=== PATIENT | female | born 1985 | race Caucasian/White ===

== ENCOUNTER 2017-01-01 20:49 | Emergency (ER) | payer SELFPAY ==
[2017-01-01] MEDS ORDERED: PROMETHAZINE HCL 25 MG TABLET PO ONE (21:35)
[2017-01-01] MEDS ORDERED: LIDOCAINE 1%/EPINEPHRINE INJ 20 ML VIAL INJ ONE (21:35)
[2017-01-01] MEDS ORDERED: OXYCODONE-ACETAMINOPHEN 5-325 MG TABLET PO ONE (21:35)
--- NOTE | 2017-01-01 21:36 | ER Document Report ---
ED Skin Rash/Insect Bite/Abscs - General Chief Complaint: Cyst Stated Complaint: POSSIBLE CYST UNDER ARMPIT Time Seen by Provider: 01/01/17 21:35 Notes: Patient is a 31-year-old female who comes emergency department for chief complaint of a painful elevated red area in her left armpit, she states this began almost 2 weeks ago, last week she was evaluated by urgent care and placed on Keflex, she states the area has worsened, she states she called them and they advised her to come to the emergency department. Patient denies any daily medications, denies any past medical history otherwise. TRAVEL OUTSIDE OF THE [place] IN LAST 30 DAYS: No - Related Data Allergies/Adverse Reactions: No Known Allergies Allergy (Verified 10/02/14 13:50) Past Medical History - General Information source: Patient - Social History Smoking Status: Current Every Day Smoker Chew tobacco use (# tins/day): No Frequency of alcohol use: None Drug Abuse: None Lives with: Family Family History: Reviewed & Not Pertinent Patient has suicidal ideation: No Patient has homicidal ideation: No Renal/ Medical History: Denies: Hx Peritoneal Dialysis Past Surgical History: Reports: Hx Section, Hx Cholecystectomy, Hx Gynecologic Surgery - - Immunizations Hx Diphtheria, Pertussis, Tetanus Vaccination: Yes Review of Systems - Review of Systems Constitutional: No symptoms reported EENT: No symptoms reported Cardiovascular: No symptoms reported Respiratory: No symptoms reported Gastrointestinal: No symptoms reported Genitourinary: No symptoms reported Female Genitourinary: No symptoms reported Musculoskeletal: No symptoms reported Skin: See HPI Hematologic/Lymphatic: No symptoms reported Neurological/Psychological: No symptoms reported Physical Exam - Vital signs Vitals: Temp Pulse Resp BP Pulse Ox 98.0 F 57 L 17 126/84 H 100 01/01/17 21:07 01/01/17 21:07 01/01/17 21:07 01/01/17 21:07 01/01/17 21:07 Interpretation: Normal - General General appearance: Appears well, Alert In distress: None - HEENT Head: Normocephalic, Atraumatic Eyes: Normal Conjunctiva: Normal Extraocular movements intact: Yes Eyelashes: Normal Pupils: PERRL Sinus: Normal Nasal: Normal Mouth/Lips: Normal Mucous membranes: Normal Pharynx: Normal Neck: Normal - Respiratory Respiratory status: No respiratory distress Chest status: Nontender Breath sounds: Normal. No: Decreased air movement, Wheezing Chest palpation: Normal - Cardiovascular Rhythm: Regular. No: Tachycardia Heart sounds: Normal auscultation, S1 appreciated, S2 appreciated Murmur: No - Abdominal Inspection: Normal Distension: No distension Bowel sounds: Normal Tenderness: Nontender Organomegaly: No organomegaly - Back Back: Normal, Nontender - Extremities General upper extremity: Normal inspection, Nontender, Normal color, Normal ROM , Normal temperature General lower extremity: Normal inspection, Nontender, Normal color, Normal ROM , Normal temperature, Normal weight bearing. No: Leland's sign - Neurological Neuro grossly intact: Yes Cognition: Normal Orientation: AAOx4 Keny Coma Scale Eye Opening: Spontaneous Keny Coma Scale Verbal: Oriented Keny Coma Scale Motor: Obeys Commands Keny Coma Scale Total: 15 Speech: Normal Motor strength normal: LUE, RUE, LLE, RLE Sensory: Normal - Psychological Associated symptoms: Normal affect, Normal mood - Skin Skin Temperature: Warm Skin Moisture: Dry Skin Color: Normal Skin irregularity: Abscess - Left mid axillary area with a elevated, fluctuant, indurated, tender abscess with minimal surrounding erythema, no surrounding lymphadenopathy, no other abnormalities noted Course - Re-evaluation Re-evalutation: Abscess drained, packed, patient placed on oral antibiotic to take along with her Keflex, discussed follow-up, discussed return precautions, patient states she is planning on taking the packing out in 2 days at home by herself, she agrees to return for any concerning or worsening symptoms. - Vital Signs Vital signs: Temp Pulse Resp BP Pulse Ox 98.1 F 57 L 18 128/76 H 99 01/01/17 22:40 01/01/17 21:07 01/01/17 22:40 01/01/17 22:40 01/01/17 22:40 Procedures - Incision and Drainage Left axilla Type: Single Anesthetic type: 1% Lidocaine w/epi mL's of anesthetic: 5 Blade size: 11 I&D procedure: Iodoform packing placed, Sterile dressing applied Incision Method: Incision made by scalpel Amount/type of drainage: Large amount of purulent material, minimal bleeding Discharge - Discharge Clinical Impression: Abscess Condition: Stable Disposition: HOME, SELF-CARE Additional Instructions: Take the packing out in 48 hours, keep an absorbing gauze dressing over the area (change at least daily), clean gently with soap and water. After packing is removed clean with soap and water and to keep dressing over the area until resolved. Take the antibiotic as directed, take the pain medication if needed. Follow-up with primary care. Return to emergency department for any concerning or worsening symptoms including swelling, redness, fever, or any other concerning symptoms. Prescriptions: Hydrocodone/Acetaminophen [Colebrook 5-325 mg Tablet] 1 - 2 tab PO ASDIR #10 tablet Sulfamethoxazole/Trimethoprim [Bactrim Ds Tablet] 1 each PO BID #10 tablet Forms: Return to Work Referrals: CHRISTIAN PEREYRA MD [Primary Care Provider] - Follow up as needed
[2017-01-01] MEDS ORDERED: HYDROCODONE/ACETAMINOPHEN 5-325 MG 6 TAB/DSPK PO PRN (22:17)
[2017-01-01 22:41] VITALS: BP 128/76
== END 2017-01-01 22:43 | disposition home or self-care (01) ==
LOC: ER 20:49
PROC: 0H9CXZZ Drainage of Left Upper Arm Skin, External Approach (ICD-10-PCS; principal; 2017-01-01)
DX: L02.414 Cutaneous abscess of left upper limb (principal); F17.200 Nicotine dependence, unspecified, uncomplicated
CPT/HCPCS: 99283; 10060; J3490; A6266

== ENCOUNTER 2017-01-24 12:18 | Emergency (ER) | payer SELFPAY ==
[2017-01-24] MEDS ORDERED: ACETAMINOPHEN WITH CODEINE #3 TABLET PO ONE (12:28)
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
[2017-01-24 13:26] VITALS: BP 132/89
== END 2017-01-24 13:26 | disposition home or self-care (01) ==
LOC: ER 12:18
DX: S01.01XA Laceration without foreign body of scalp, initial encounter (principal); R51 Headache; Y00.XXXA Assault by blunt object, initial encounter; F41.9 Anxiety disorder, unspecified
CPT/HCPCS: 99284

== ENCOUNTER 2017-08-26 16:36 | Inpatient (IN) | payer SELFPAY ==
--- NOTE | 2017-08-26 16:46 | ER Document Report ---
ED General - General Stated Complaint: POSSIBLE OVERDOSE Time Seen by Provider: 08/26/17 16:46 Notes: 32-year-old female patient brought in by EMS for overdose. States that she was depressed. Admits to smoking marijuana. Took 20 tablets of 2 mg rexulti tablets which is a second generation atypical antipsychotic. Denies taking any heroin or narcotics. Denies alcohol. Has a history of depression red blood sugar by EMS was reportedly normal. Patient began to have episodes of bradycardia with heart rates in the 30s. Heart pressure normal. Patient obtunded. TRAVEL OUTSIDE OF THE [place] IN LAST 30 DAYS: No - HPI Onset: Just prior to arrival - Related Data Allergies/Adverse Reactions: No Known Allergies Allergy (Verified 10/02/14 13:50) Past Medical History - General Information source: Patient - Social History Smoking Status: Smoker,Current Status Unk Smoking Education Provided: No Frequency of alcohol use: None Drug Abuse: Marijuana Lives with: Family Family History: Reviewed & Not Pertinent - Past Medical History Cardiac Medical History: Reports: None Pulmonary Medical History: Reports: None EENT Medical History: Reports: None Neurological Medical History: Reports: None Endocrine Medical History: Reports: None Renal/ Medical History: Reports: None. Denies: Hx Peritoneal Dialysis Malignancy Medical History: Reports: None GI Medical History: Reports: None Musculoskeltal Medical History: Reports None Skin Medical History: Reports None Psychiatric Medical History: Reports: Hx Bipolar Disorder, Hx Depression Past Surgical History: Reports: Hx Section, Hx Cholecystectomy, Hx Gynecologic Surgery - - Immunizations Hx Diphtheria, Pertussis, Tetanus Vaccination: Yes Physical Exam - Vital signs Vitals: Resp Pulse Ox 17 99 08/26/17 16:48 08/26/17 16:48 Course - Vital Signs Vital signs: Temp Pulse Resp BP Pulse Ox 22 H 120/71 99 08/26/17 18:47 08/26/17 19:17 08/26/17 19:17 - Laboratory Result Diagrams: 08/26/17 16:50 08/26/17 16:50 Laboratory results interpreted by me: 08/26/17 08/26/17 16:50 18:38 ABG pO2 103.0 H ABG Total CO2 25.6 H Chloride 109 H BUN 6 L Glucose 165 H Acetaminophen < 10 L - EKG Interpretation by Ca EKG shows normal: [place], Intervals, QRS Complexes, ST-T Waves Rate: Bradycardia Additional EKG results interpreted by me: 08/26/17 19:14 Rate is 40 with sinus bradycardia. Normal QRS and normal QTC Critical Care Note - Critical Care Note Total time excluding time spent on procedures (mins): 75 Comments: Bradycardia, overdose, consultation with specialists Discharge - Discharge Clinical Impression: Intentional overdose of drug in tablet form, Symptomatic sinus bradycardia Condition: Serious Disposition: ADMITTED INPATIENT Admitting Provider: Hospitalist Unit Admitted: ICU - Ge[facility]
[2017-08-26] MEDS ORDERED: NALOXONE HCL INJ/PF 0.4 MG/1 ML SDV ONE (16:52)
[2017-08-26] MEDS ORDERED: NORMAL SALINE 1000 ML 1,000 ML IV ONE (16:56)
[2017-08-26 17:04] LABS: ABSOLUTE EOSINOPHILS # (AUTO) 0.3 10^3/uL (0.0-0.6); ABSOLUTE LYMPHOCYTES (AUTO) 2.2 10^3/uL (0.5-4.7); ABSOLUTE MONOCYTES (AUTO) 0.6 10^3/uL (0.1-1.4); ABSOLUTE NEUT (AUTO) 3.7 10^3/uL (1.7-8.2); BASOPHILS % (AUTO) 0.6 % (0-2); EOSINOPHILS % (AUTO) 4.6 % (0-6); HEMATOCRIT 40.6 % (36.0-47.0); HEMOGLOBIN 13.8 g/dL (12.0-15.5); LYMPHOCYTES % (AUTO) 31.8 % (13-45); MEAN CORPUSCULAR HGB CONC 33.9 g/dL (32.0-36.0); MEAN CORPUSCULAR VOLUME 92 fl (80-97); MONOCYTES % (AUTO) 8.5 % (3-13); PLATELET COUNT 332 10^3/uL (150-450); RED BLOOD COUNT 4.43 10^6/uL (3.72-5.28); RED CELL DISTRIBUTION WIDTH 13.6 % (11.5-14.0); SEGMENTED NEUTROPHILS % (AUTO) 54.5 % (42-78); TOTAL CELLS COUNTED % (AUTO) 100 %; WHITE BLOOD COUNT 6.8 10^3/uL (4.0-10.5)
[2017-08-26 17:34] LABS: ALANINE AMINOTRANSFERASE 26 U/L (9-52); ALBUMIN 4.3 g/dL (3.5-5.0); ALKALINE PHOSPHATASE 54 U/L (38-126); ANION GAP 7 (5-19); ASPARTATE AMINO TRANSFERASE 32 U/L (14-36); BILIRUBIN,DIRECT 0.4 mg/dL (0.0-0.4); BILIRUBIN,TOTAL 0.9 mg/dL (0.2-1.3); BLOOD UREA NITROGEN 6 mg/dL (7-20); CALCIUM 9.9 mg/dL (8.4-10.2); CARBON DIOXIDE 26 mmol/L (22-30); CHLORIDE 109 mmol/L (98-107); CREATINE KINASE 45 U/L (30-135); GLUCOSE 165 mg/dL (75-110); POTASSIUM 3.8 mmol/L (3.6-5.0); SODIUM 142.3 mmol/L (137-145); TOTAL PROTEIN 7.3 g/dL (6.3-8.2)
[2017-08-26 17:45] LABS: CREATINE KINASE MB < 0.22 ng/mL (<4.55); TROPONIN I < 0.012 ng/mL
[2017-08-26 17:52] LABS: ACETAMINOPHEN < 10 ug/mL (10-30); ALCOHOL < 10 mg/dL (NONE DETECTED)
[2017-08-26] MEDS ORDERED: NALOXONE HCL INJ/PF 0.4 MG/1 ML SDV IV ONE (18:19)
[2017-08-26 18:32] LABS: APPEARANCE,URINE SLIGHTLY-CLOUDY; BILIRUBIN,URINE NEGATIVE (NEGATIVE); COLOR,URINE STRAW; GLUCOSE, URINE NEGATIVE (NEGATIVE); KETONES,URINE NEGATIVE (NEGATIVE); LEUKOCYTE ESTERASE,URINE NEGATIVE (NEGATIVE); NITRITE,URINE NEGATIVE (NEGATIVE); PROTEIN,URINE NEGATIVE (NEGATIVE); URINE SPECIFIC GRAVITY 1.003; UROBILINOGEN,URINE NEGATIVE mg/dL (<2.0)
[2017-08-26 18:52] LABS: URINE AMPHETAMINES SCREEN NEGATIVE; URINE BARBITURATES SCREEN NEGATIVE; URINE BENZODIAZEPINES SCREEN NEGATIVE; URINE COCAINE SCREEN NEGATIVE; URINE MARIJUANA (THC) SCREEN UNCONFIRMED POSITIVE; URINE METHADONE SCREEN NEGATIVE; URINE PHENCYCLIDINE SCREEN NEGATIVE
[2017-08-26 19:22] LABS: ARTERIAL BLOOD BASE EXCESS 0.4 mmol/L; ARTERIAL BLOOD H2CO3 1.14 mmol/L (1.05-1.35); ARTERIAL BLOOD HCO3 24.5 mmol/L (20-26); ARTERIAL BLOOD O2 SATURATION 97.9 % (94-98); ARTERIAL BLOOD PCO2 37.8 mmHg (35-45); ARTERIAL BLOOD PH 7.43 (7.35-7.45); ARTERIAL BLOOD TOTAL CO2 25.6 mmol/L (21-25)
[2017-08-26 19:24] LABS: ARTERIAL BLOOD FIO2 ROOM AIR
[2017-08-26] MEDS ORDERED: IPRATROPIUM/ALBUTEROL 0.5-2.5 MG/3 ML AMPUL NEB ONE (21:04)
[2017-08-26] MEDS ORDERED: IPRATROPIUM/ALBUTEROL 0.5-2.5 MG/3 ML AMPUL NEB PRN (21:04)
[2017-08-26] MEDS ORDERED: ACETAMINOPHEN 325 MG TABLET PO PRN (21:04)
[2017-08-26] MEDS ORDERED: MAGNESIUM HYDROXIDE SUSP 30 ML UDCUP PO PRN (22:00)
[2017-08-26 22:52] LABS: CREATINE KINASE MB < 0.22 ng/mL (<4.55); TROPONIN I < 0.012 ng/mL
[2017-08-26] MEDS: HEPARIN SOD (PORCINE) 5,000 UNIT/ML 1 ML SYRINGE SUBCUT SCH (23:56)
[2017-08-27] MEDS ORDERED: NORMAL SALINE 1000 ML 1,000 ML IV PRN (02:58)
--- NOTE | 2017-08-27 03:46 | PDOC H&P ---
History of Present Illness Admission Date/PCP: 08/26/17 19:39 Patient complains of: Overdose History of Present Illness: SUKHDEV COBB is a 32 year old female with a past medical history of morbid obesity, bipolar disorder not on medication. Patient presents lethargic via EMS after admitting a depression motivated overdose of 20 tablets of 2 mg Rexulti and atypical antipsychotic of her daughters. Patient is found to have bradycardia in the mid 30s bedside pacer pads are placed, toxicology recommends telemetry observation. Mental health is consulted IVC papers are signed and she is referred to the hospitalist for admission. Patient has no complaints, denies previous episode, admits to marijuana otherwise unremarkable lab results. Past Medical History Cardiac Medical History: Reports: None Pulmonary Medical History: Reports: None EENT Medical History: Reports: None Neurological Medical History: Reports: None Endocrine Medical History: Reports: None Renal/ Medical History: Reports: None Malignancy Medical History: Reports: None GI Medical History: Reports: None Musculoskeltal Medical History: Reports: None Skin Medical History: Reports: None Psychiatric Medical History: Reports: Bipolar Disorder, Depression Past Surgical History Past Surgical History: Reports: Section, Cholecystectomy Social History Information Source: Patient Lives with: Family Smoking Status: Smoker,Current Status Unk Drugs: Marijuana - Advance Directive Resuscitation Status: Full Code Family History Family History: Hypertension Parental Family History Reviewed: Yes Children Family History Reviewed: Yes Sibling(s) Family History Reviewed.: Yes Medication/Allergy Home Medications: No Home Medications 08/26/17 Allergies/Adverse Reactions: No Known Allergies Allergy (Verified 10/02/14 13:50) Review of Systems ROS unobtainable: Due to mental status Physical Exam Vital Signs: Temp Pulse Resp BP Pulse Ox 35 L 16 113/59 L 98 08/26/17 20:32 08/27/17 00:31 08/27/17 00:31 08/27/17 00:31 Intake & Output 08/25/17 08/26/17 08/27/17 11:59 11:59 11:59 Output Total 400 Balance -400 General appearance: PRESENT: morbidly obese, other - Lethargic but arousable to noxious stimuli Head exam: PRESENT: atraumatic - ., normocephalic Eye exam: PRESENT: conjunctiva pink, EOMI, PERRLA. ABSENT: scleral icterus Ear exam: PRESENT: normal external ear exam Mouth exam: PRESENT: moist, tongue midline Neck exam: ABSENT: carotid bruit, JVD, lymphadenopathy, thyromegaly Respiratory exam: PRESENT: clear to auscultation carmelo. ABSENT: rales, rhonchi, wheezes Cardiovascular exam: PRESENT: RRR. ABSENT: diastolic murmur, rubs, systolic murmur Pulses: PRESENT: normal dorsalis pedis pul Vascular exam: PRESENT: normal capillary refill GI/Abdominal exam: PRESENT: normal bowel sounds, soft. ABSENT: distended, guarding, mass, organolmegaly, rebound, tenderness Rectal exam: PRESENT: deferred Extremities exam: PRESENT: full ROM. ABSENT: calf tenderness, clubbing, pedal edema Neurological exam: PRESENT: alert, awake, oriented to person, oriented to place , oriented to time, oriented to situation, CN II-XII grossly intact. ABSENT: motor sensory deficit Psychiatric exam: PRESENT: depressed, flat affect Skin exam: PRESENT: dry, intact, warm. ABSENT: cyanosis, rash Results Laboratory Results: 08/26/17 08/26/17 21:55 21:55 Creatine Kinase 35 CK-MB (CK-2) < 0.22 Troponin I < 0.012 Assessment & Plan - Diagnosis (1) Symptomatic sinus bradycardia Is this a current diagnosis for this admission?: Yes Plan: ICU admission, pacer pads placed as needed atropine, trial beta-2 agonist nebulizer. (2) Intentional overdose of drug in tablet form Is this a current diagnosis for this admission?: Yes Plan: IVC papers signed, mental health consulted. Supportive care (3) Depression Is this a current diagnosis for this admission?: Yes Plan: Evaluate for medical cause given significant morbid obesity with eval of TSH (4) Morbid obesity Is this a current diagnosis for this admission?: Yes Plan: Morbid obesity will evaluate for metabolic cause with evaluation of thyroid function and dietitian consultation. - Time Time Spent: 50 to 70 Minutes - Inpatient Certification Medical Necessity: Need Close Monitoring Due to Risk of Patient Decompensation
[2017-08-27 04:20] LABS: ABSOLUTE EOSINOPHILS # (AUTO) 0.4 10^3/uL (0.0-0.6); ABSOLUTE LYMPHOCYTES (AUTO) 3.6 10^3/uL (0.5-4.7); ABSOLUTE MONOCYTES (AUTO) 0.9 10^3/uL (0.1-1.4); ABSOLUTE NEUT (AUTO) 4.4 10^3/uL (1.7-8.2); BASOPHILS % (AUTO) 0.4 % (0-2); EOSINOPHILS % (AUTO) 3.8 % (0-6); HEMATOCRIT 38.2 % (36.0-47.0); HEMOGLOBIN 12.9 g/dL (12.0-15.5); LYMPHOCYTES % (AUTO) 38.6 % (13-45); MEAN CORPUSCULAR HEMOGLOBIN 30.9 pg (27.0-33.4); MEAN CORPUSCULAR HGB CONC 33.7 g/dL (32.0-36.0); MEAN CORPUSCULAR VOLUME 92 fl (80-97); MONOCYTES % (AUTO) 9.7 % (3-13); PLATELET COUNT 298 10^3/uL (150-450); RED BLOOD COUNT 4.17 10^6/uL (3.72-5.28); RED CELL DISTRIBUTION WIDTH 13.6 % (11.5-14.0); SEGMENTED NEUTROPHILS % (AUTO) 47.5 % (42-78); TOTAL CELLS COUNTED % (AUTO) 100 %; WHITE BLOOD COUNT 9.2 10^3/uL (4.0-10.5)
[2017-08-27 04:31] LABS: ALANINE AMINOTRANSFERASE 29 U/L (9-52); ALBUMIN 3.8 g/dL (3.5-5.0); ALKALINE PHOSPHATASE 55 U/L (38-126); ANION GAP 8 (5-19); ASPARTATE AMINO TRANSFERASE 20 U/L (14-36); BILIRUBIN,DIRECT 0.2 mg/dL (0.0-0.4); BILIRUBIN,TOTAL 0.5 mg/dL (0.2-1.3); BLOOD UREA NITROGEN 8 mg/dL (7-20); CALCIUM 9.6 mg/dL (8.4-10.2); CARBON DIOXIDE 24 mmol/L (22-30); CHLORIDE 112 mmol/L (98-107); CREATINE KINASE 30 U/L (30-135); GLUCOSE 117 mg/dL (75-110); POTASSIUM 3.8 mmol/L (3.6-5.0); SODIUM 144.2 mmol/L (137-145); TOTAL PROTEIN 6.3 g/dL (6.3-8.2)
[2017-08-27 04:49] LABS: CREATINE KINASE MB < 0.22 ng/mL (<4.55); TROPONIN I < 0.012 ng/mL
[2017-08-27] MEDS: HEPARIN SOD (PORCINE) 5,000 UNIT/ML 1 ML SYRINGE SUBCUT SCH (06:16)
--- NOTE | 2017-08-27 09:48 | EKG REPORT ---
SEVERITY:- OTHERWISE NORMAL ECG - SINUS BRADYCARDIA ATRIAL PREMATURE COMPLEX : Confirmed by: Jane Cadena 27-Aug-2017 09:48:15
--- NOTE | 2017-08-27 09:48 | EKG REPORT ---
SEVERITY:- OTHERWISE NORMAL ECG - SINUS BRADYCARDIA : Confirmed by: Jane Cadena 27-Aug-2017 09:48:05
--- NOTE | 2017-08-27 09:48 | EKG REPORT ---
SEVERITY:- OTHERWISE NORMAL ECG - SINUS BRADYCARDIA : Confirmed by: Jane Cadena 27-Aug-2017 09:47:57
[2017-08-27 10:27] LABS: MAGNESIUM 2.1 mg/dL (1.6-2.3); PHOSPHORUS 3.5 mg/dL (2.5-4.5)
[2017-08-27] MEDS: NORMAL SALINE 1000 ML 1,000 ML IV PRN ×2 (10:27→17:51)
[2017-08-27 11:11] LABS: CREATINE KINASE MB < 0.22 ng/mL (<4.55); TROPONIN I < 0.012 ng/mL
[2017-08-27] MEDS: DOCUSATE SODIUM 100 MG CAPSULE PO SCH ×2 (11:36→17:54)
--- NOTE | 2017-08-27 19:09 | PDOC PROGRESS REPORT ---
Subjective Progress Note for:: 08/27/17 Subjective:: 32 yr old female who took her son's psych meds in a suicide attempt. One was an atypical antipsychotic, she may also have taken multiple tablets of clonidine per friend. She is somnolent, but arousable. She does not want to answer any questions. Reason For Visit: ANTI PSYCHOTIC OVERDOSE BRADYCARDIA, Physical Exam Vital Signs: Temp Pulse Resp BP Pulse Ox 97.7 F 34 L 14 132/74 H 95 08/27/17 15:11 08/27/17 16:14 08/27/17 16:12 08/27/17 15:11 08/27/17 16:12 Intake & Output 08/26/17 08/27/17 08/28/17 06:59 06:59 06:59 Output Total 420 55 Balance -420 -55 Weight 127.9 kg General appearance: PRESENT: no acute distress, obese Respiratory exam: PRESENT: clear to auscultation carmelo, unlabored Cardiovascular exam: PRESENT: RRR GI/Abdominal exam: PRESENT: normal bowel sounds, soft Rectal exam: PRESENT: deferred Results Laboratory Results: 08/27/17 04:00 08/27/17 04:00 08/27/17 08/27/17 08/27/17 04:00 04:00 04:00 WBC 9.2 RBC 4.17 Hgb 12.9 Hct 38.2 MCV 92 MCH 30.9 MCHC 33.7 RDW 13.6 Plt Count 298 Seg Neutrophils % 47.5 Lymphocytes % 38.6 Monocytes % 9.7 Eosinophils % 3.8 Basophils % 0.4 Absolute Neutrophils 4.4 Absolute Lymphocytes 3.6 Absolute Monocytes 0.9 Absolute Eosinophils 0.4 Absolute Basophils 0.0 Sodium 144.2 Potassium 3.8 Chloride 112 H Carbon Dioxide 24 Anion Gap 8 BUN 8 Creatinine 0.64 Est GFR ( Amer) > 60 Est GFR (Non-Af Amer) > 60 Glucose 117 H Calcium 9.6 Phosphorus Magnesium Total Bilirubin 0.5 AST 20 ALT 29 Alkaline Phosphatase 55 Total Protein 6.3 Albumin 3.8 TSH 1.02 08/27/17 04:00 WBC RBC Hgb Hct MCV MCH MCHC RDW Plt Count Seg Neutrophils % Lymphocytes % Monocytes % Eosinophils % Basophils % Absolute Neutrophils Absolute Lymphocytes Absolute Monocytes Absolute Eosinophils Absolute Basophils Sodium Potassium Chloride Carbon Dioxide Anion Gap BUN Creatinine Est GFR ( Amer) Est GFR (Non-Af Amer) Glucose Calcium Phosphorus 3.5 Magnesium 2.1 Total Bilirubin AST ALT Alkaline Phosphatase Total Protein Albumin TSH 08/26/17 08/26/17 08/27/17 21:55 21:55 04:00 Creatine Kinase 35 CK-MB (CK-2) < 0.22 < 0.22 Troponin I < 0.012 < 0.012 08/27/17 08/27/17 08/27/17 04:00 10:07 10:07 Creatine Kinase 30 27 L CK-MB (CK-2) < 0.22 Troponin I < 0.012 Assessment & Plan - Diagnosis (1) Depression Is this a current diagnosis for this admission?: Yes (2) Intentional overdose of drug in tablet form Is this a current diagnosis for this admission?: Yes (3) Morbid obesity Is this a current diagnosis for this admission?: Yes (4) Symptomatic sinus bradycardia Is this a current diagnosis for this admission?: Yes - Time Time Spent with patient: 25-34 minutes - Plan Summary Plan Summary: Continue IV fluids, tele monitoring, suicide precautions. Sister Lady Lynne [phone] is [place] and will bring all the bottles of meds from home.
--- NOTE | 2017-08-27 22:44 | CONSULTATION REPORT E ---
Consultation Report NAME: SUKHDEV COBB : 1985 AGE: 32Y DATE: 08/27/2017 ROOM: 306 A TO: ZOILA DONAHUE M.D. FROM: JT GARCIA M.D. Requesting Physician REASON FOR CONSULTATION: Significant bradycardia but without any symptoms and with a stable blood pressure. HISTORY OF PRESENT ILLNESS: The patient is a 32-year-old female with a past history of morbid obesity, bipolar disorder who is not on any medication. The patient became severely depressed and took about 20 tablets of 2 mg of Rexulti atypical antipsychotic medication of the daughter. The patient also today as per the attending physician who spoke to the patient's friend also took an unknown number of clonidine tablets. The patient was found in the ER to be bradycardic in the mid 30s and bedside pacers were placed, and toxicology was consulted by the hospitalist on-call and they recommended telemetry observation. Also, note that mental health is consulted with IVC papers and signed and she is referred to hospitalist for admission. The patient has no history of chest pain or discomfort. She has some dizziness but no syncope. She is very lethargic, most likely the effect of clonidine and the other overdose of antipsychotic medication. She denies any PND, orthopnea, or leg pain. There is no history of cough or sputum production. There are no TIA or CVA symptoms. There is no syncope. The patient does complain of generalized weakness. PAST MEDICAL HISTORY: There is no history of coronary artery disease or congenital heart disease, angina or congestive heart failure. No history of cardiac arrhythmia. No prior history of bradycardia. Endocrine: No history of diabetes mellitus, no history of thyroid disease, no history of polydipsia or polyuria. Renal: No history of chronic kidney disease. No history of asthma or COPD. No history of sleep apnea. The patient is morbidly obese. Psychiatric: She has a bipolar disorder, which has not been treated and the patient has severe depressive episode leading to the patient's current situation. PAST SURGICAL HISTORY: Positive for and cholecystectomy. SOCIAL HISTORY: The patient is a smoker. There is no history of EtOH abuse. She occasionally uses marijuana. CODE STATUS: The patient is a full code. Her mother is her surrogate healthcare decision maker. FAMILY HISTORY: Positive for hypertension. Negative for coronary artery disease or congenital heart disease. REVIEW OF SYSTEMS: CONSTITUTIONAL: The patient is lethargic but does answer questions. Complains of generalized fatigue and weakness. No fever, chills, or rigors. HEAD: Denies headache or head injury. Complains of dizziness. EYES: No history of amblyopia or diplopia. No history of amaurosis fugax. EARS: No loss of hearing. No history of tinnitus. No history of recurrent ear infections. NOSE: No history of hay fever. No history of nosebleeds. MOUTH: No history of altered taste sensation. No ulcers in the mouth. No bleeding from the gums. THROAT: No history of odynophagia or dysphagia. No history of recurrent sore throats. SKIN: There is no pruritus. No yellowish discoloration of the skin. NECK: No history of neck pain. No history of swelling in the neck. No goiter. LUNGS: No history of wheezing. No history of cough or sputum production. No history of asthma or COPD. No history of pleuritic chest pain. No history of symptoms of upper or lower respiratory tract infections or pneumonia. No history of sleep apnea. No history of pulmonary embolism. CARDIAC: No history of coronary artery disease. No history of congestive heart failure. No history of cardiac arrhythmia. No history of hypertension. No history of congenital heart disease. No history of leg edema. No history of PND, orthopnea. Complains of dizziness but no syncope. GASTROINTESTINAL: No history of GERD. No history of peptic ulcer disease. No history of GI bleed. No history of cirrhosis. No history of jaundice. No history of altered bowel movements. RENAL: No history of chronic kidney disease. No symptoms of UTI. No history of hematuria, pyuria, or dysuria. MUSCULOSKELETAL: Denies arthritis or collagen vascular disease. METABOLIC: History of moderate obesity present. No history of hyperlipidemia. CENTRAL NERVOUS SYSTEM: No history of TIA or CVA. No history of sleep apnea. No history of headaches, migraines, or seizures. PSYCHIATRIC: History of bipolar disorder, not on any medication. The patient at present involuntary committed. Note that the patient had taken an overdose of medication mentioned above chronically, may be the cause that the patient's heart rate is low. HEMATOLOGIC: No history of bleeding diathesis. No history of clotting disorders. PHYSICAL EXAMINATION: GENERAL: The patient at present is very sleepy but does answer questions appropriately. She is morbidly obese, well-groomed. VITAL SIGNS: She is afebrile with a temperature of 98 degrees Fahrenheit, pulse is 33-37 beats per minute, blood pressure 130/78, respirations are 14 per minute, O2 saturations are 100% on room air. HEENT: Head is atraumatic, normocephalic. Eyes: Pupils are equal, round, regular, reactive to light and accommodation. Extraocular movements are normal. There is no conjunctival pallor. There is no scleral icterus. Ears: Tympanic membranes are intact, external auditory canals are clear. Nose: There is no deviation of the nasal septum. There is no inflammation of the nasal mucous membranes. Mouth: Mucous membranes of the mouth are moist, tongue is moist, there are no ulcers, there is no bleeding from the gums. Throat: There is no redness of the oropharynx, there are no exudates. SKIN: There is no skin rashes. There is no petechiae or ecchymosis. There are no skin lesions. NECK: Supple. There is no JVD. There is no lymphadenopathy. There is no goiter. Carotids are equal. There is no bruit. Trachea is central. LUNGS: Clear to auscultation and percussion. There is no chest wall tenderness. HEART: S1 and S2 is heard. There is no S3 gallop. There is no S4 gallop. There is a systolic murmur in the left sternal border and the apex. There is no rub. ABDOMEN: Obese, nontender. There is no hepatosplenomegaly. Bowel sounds are well heard. There are no tender areas or masses. EXTREMITIES: Femorals are deep. Femoral are diminished. There are no femoral bruits. Leg pulses are diminished. There is no pedal edema. There is no cyanosis or clubbing. There is no DVT or cellulitis. There is no calf tenderness. CENTRAL NERVOUS SYSTEM: The patient is drowsy but does awake and is appropriate. There is no focal deficits. She is oriented x3 when she is awake. PSYCHIATRIC: The patient does not appear to be agitated. Appears to be depressed. Her affect is withdrawn. DIAGNOSTIC STUDIES: The patient's EKG was sinus bradycardia with *------*. Subsequent EKG shows sinus bradycardia within normal limits. The patient's white count is 9200, hemoglobin is 12.9, hematocrit is 38.2, and the platelet count is 298,000. The patient's sodium is 144.2, potassium is 3.8, chloride is 112, CO2 is 24. The patient's BUN is 8, creatinine 0.64, GFR is greater than 60. Glucose is 117. Calcium is 10.6 and her liver function tests are normal. The patient's troponin I has been negative x3. TSH is normal at 1.04. The patient's acetaminophen is less than 10, salicylates is less than 1. The patient's urine opiate, methadone, barbiturate, phencyclidine, amphetamine, benzodiazepines, and urine cocaine screen are all negative. Her urine marijuana is unconfirmed positive. IMPRESSION: 1. Bradycardia, most likely secondary to the patient being on clonidine. 2. Bipolar disorder. 3. Severe depression leading to overdose. RECOMMENDATION: Would not treat the patient since the patient's blood pressure is stable and the patient has been awakened, seems to be with all her full mental faculties, although she appears to be depressed. Would recommend watching the patient closely on telemetry. The heart rate being slow the bradycardia is most likely secondary to the patient's clonidine. This should wear off. Will follow with you. DICTATING PHYSICIAN: ZOILA DONAHUE M.D. [id number] RAISSA#: [id number] ID: [id number] JOB#: [id number] ACCT: [id number] cc:ZOILA DONAHUE M.D. >
[2017-08-28] MEDS: NORMAL SALINE 1000 ML 1,000 ML IV PRN ×2 (01:30→10:07)
[2017-08-28 05:21] LABS: ALANINE AMINOTRANSFERASE 59 U/L (9-52); ALBUMIN 3.6 g/dL (3.5-5.0); ALKALINE PHOSPHATASE 62 U/L (38-126); ANION GAP 8 (5-19); ASPARTATE AMINO TRANSFERASE 67 U/L (14-36); BILIRUBIN,DIRECT 0.2 mg/dL (0.0-0.4); BILIRUBIN,TOTAL 0.7 mg/dL (0.2-1.3); BLOOD UREA NITROGEN 11 mg/dL (7-20); CALCIUM 8.7 mg/dL (8.4-10.2); CARBON DIOXIDE 23 mmol/L (22-30); CHLORIDE 112 mmol/L (98-107); GLUCOSE 115 mg/dL (75-110); MAGNESIUM 1.6 mg/dL (1.6-2.3); POTASSIUM 3.5 mmol/L (3.6-5.0); SODIUM 142.9 mmol/L (137-145); TOTAL PROTEIN 6.4 g/dL (6.3-8.2)
[2017-08-28] MEDS: DOCUSATE SODIUM 100 MG CAPSULE PO SCH ×2 (10:06→18:30)
--- NOTE | 2017-08-28 16:39 | PROGRESS NOTE E ---
Progress Note NAME: SUKHDEV COBB : 1985 AGE: 32Y DATE: 08/28/2017 ROOM: 306 SUBJECTIVE: Note that the patient is more awake and alert today. She does not appear to be agitated. She denies any chest pain or discomfort. There is no PND, orthopnea. There is no arrhythmia seen on the monitor. Her heart rate is now up to 44 beats per minute and if she moves around in bed it goes up to 50. Hence, this is clearly the effect of the patient having taken clonidine tablets. She denies any chest pain or discomfort. There is no shortness of breath. There is no PND, orthopnea, leg edema. OBJECTIVE: GENERAL: On examination the patient is morbidly obese, but well-groomed. VITAL SIGNS: She is afebrile with a temperature of 97.7 degrees Fahrenheit, pulse is 43 beats per minute, blood pressure is 113/57, respirations are 20 per minute, O2 saturations are 94% on room air. HEENT: Head is atraumatic, normocephalic. Eyes: Pupils are equal, round and regular, reactive to light and accommodation. Extraocular movements are normal. There is no conjunctival pallor. There is no scleral icterus. ENT is negative. NECK: Supple. There is no JVD. There is no lymphadenopathy. There is no goiter. Carotids are equal. There is no bruit. Trachea is central. LUNGS: Clear to auscultation and percussion. There is no chest wall tenderness. HEART: S1 and S2 is heard. There is no S3 gallop. There is no S4 gallop. There is a systolic murmur in the left sternal border and the apex. There is no rub. ABDOMEN: Soft, obese, nontender. There is no hepatosplenomegaly. Bowel sounds are well heard. EXTREMITIES: Femorals are deep. Femoral are diminished. There are is femoral bruit. Leg pulses are slightly diminished. There is no pedal edema. There is no cyanosis or clubbing. There is no DVT or cellulitis. There is no calf tenderness. CENTRAL NERVOUS SYSTEM: The patient is conscious, awake, alert and oriented x3 with no focal deficits. PSYCHIATRIC: The patient does not appear to be agitated. Her affect is slightly withdrawn. LABORATORY DATA: The patient's sodium is 142.9, potassium is low at 3.5, chloride is 112, CO2 is 23. The patient's BUN is 11, creatinine 0.67, GFR is greater than 60. Glucose is 115. Her calcium is 8.7 and her liver function tests are abnormal with an AST of 67, ALT of 59, and an alk-phos of 62. The patient's cardiac enzymes have been negative x3. Her albumin is 3.6 and her total protein is 6.4. IMPRESSION: 1. BRADYCARDIA, MOST LIKELY SECONDARY TO INGESTED CLONIDINE TABLET, NOW HER HEART RATE MUCH IMPROVED. 2. HYPOKALEMIA. Replace potassium. 3. ABNORMAL LFTs, MOST LIKELY SECONDARY TO THE OVERDOSE OF MEDICATION SHE TOOK AND IS AFFECTING THE LIVER. Would watch her liver enzymes serially. 4. BIPOLAR DISORDER. 5. SEVERE DEPRESSION LEADING TO OVERDOSE. RECOMMENDATION: Cardiac status is stable. The patient's heart rate should come up. Would ambulate the patient. We will sign off the case. TIME SPENT: Note 25 minutes spent on this patient with more than 50% of the time spent on direct patient care. The patient's medications have been reviewed and discussed with the other care giving providers on the case. Medical decision making now is of moderate complexity. We will sign off the case. DICTATING PHYSICIAN: ZOILA DONAHUE M.D. [id number] RAISSA#: [id number] ID: [id number] JOB#: [id number] ACCT: [id number] cc: >
--- NOTE | 2017-08-28 18:02 | PSYCHOLOGICAL NOTE ---
Psych Note - Psych Note Psych Note: Reason for Consult: intention overdose; IVC Consent permissions: patient unable to give at this time SUKHDEV COBB is a 32 year old female with a past medical history of morbid obesity, bipolar disorder not on medication. Patient presents lethargic via EMS after admitting a depression motivated overdose of 20 tablets of 2 mg Rexulti and atypical antipsychotic of her son's. Patient stated she is overwhelmed. She disclosed that she has a special needs son is currently inpatient at [facility], a 9-year-old daughter she has to take care of she has to pay the bills and go to work. She continued to disclose that there are "some personal issues with friends and family" however she would not further explain. Patient disclosed that she "just did not want to feel." She continues state that "I don't want to be hurt or be sad or be depressed anymore." When asked if the patient was glad she was able to be saved she shrugged her shoulders and stated "Ya... I mean... I don't want to ." Patient's has a previous diagnosis of bipolar however has been off medication since September 2016 because she has had no insurance. She previously was a patient with [facility]. Patient states that she does not have normal "manic" episodes she is mainly depressed. She describes her manic episodes as "a couple of minutes" of anger outburst however denies that these events are frequent. Clinician explained to patient that she is under IVC. Patient became very upset and stated that she "did not intentionally overdose she just did not want to feel." She continued to accuse the clinician of putting words into her mouth stating "you are the one saying I intentionally overdosed." Patient states she has children she needs to take care of pills she needs to pay and "does not have time for this." Patient is alert and orientated to person, place, time and circumstance. Mood is dysphoric with labile affect. Patient endorses suicidal ideation and overdosing on medication because she didn't "want to be hurt or sad or depressed anymore." She denies intentionally overdosing. Patient denies homicidal ideation. Delusions are absent and behaviors congruent with intact reality based presentation i.e. organized and linear thought processes. Eye contact is fair. Conversational speech is within normal rate tone and prosody until patient became upset. Patient then proceeded to start yelling. Attention and concentration are fair. Insight, judgment, impulse control is poor. 296.40 (F31.9) bipolar 1 disorder unspecified per history provided by patient Impression\\plan: Patient is recommended to continue under IVC. Patient is demonstrating that she has no insight into her intentional overdose. She states that she did not intentionally overdose but states she didn't want to " be hurt or be sad or be depressed anymore." Patient was noted to verbally state she intentionally overdosed to [facility] staff upon arrive to ED. Behavior health team medication recommendations are Depakote 500 mg BID with Vistaril 50mg Q6 PRN. Once patient is medically cleared, placement in a inpatient psychiatric facility will be sought. Dr. Estevez was consulted and the care and management of this patient.
--- NOTE | 2017-08-28 18:14 | PDOC PROGRESS REPORT ---
Subjective Progress Note for:: 08/28/17 Reason For Visit: ANTI PSYCHOTIC OVERDOSE BRADYCARDIA, Physical Exam Vital Signs: Temp Pulse Resp BP Pulse Ox 97.5 F 41 L 19 114/60 98 08/28/17 15:14 08/28/17 15:14 08/28/17 15:14 08/28/17 15:14 08/28/17 15:14 Intake & Output 08/27/17 08/28/17 08/29/17 06:59 06:59 06:59 Intake Total 2605 100 Output Total 420 505 200 Balance -420 2100 -100 Weight 130 kg 130 kg Additional comments: Young female lying in bed not in acute distress Awake and alert oriented 3 no facial droop speech is clear and fluent motor strength 5 out of 5 bilateral upper and lower extremities Abdomen: Soft, no focal tenderness, normal bowel sounds Skin: Warm and dry Cardiac: S1-S2 regular no murmurs heard refill edema no cyanosis Lungs: Clear to auscultation bilaterally next Results Laboratory Results: 08/27/17 04:00 08/28/17 04:12 08/28/17 04:12 Sodium 142.9 Potassium 3.5 L Chloride 112 H Carbon Dioxide 23 Anion Gap 8 BUN 11 Creatinine 0.67 Est GFR ( Amer) > 60 Est GFR (Non-Af Amer) > 60 Glucose 115 H Calcium 8.7 Phosphorus 3.0 Magnesium 1.6 Total Bilirubin 0.7 AST 67 H ALT 59 H Alkaline Phosphatase 62 Total Protein 6.4 Albumin 3.6 08/26/17 08/26/17 08/27/17 21:55 21:55 04:00 Creatine Kinase 35 CK-MB (CK-2) < 0.22 < 0.22 Troponin I < 0.012 < 0.012 08/27/17 08/27/17 08/27/17 04:00 10:07 10:07 Creatine Kinase 30 27 L CK-MB (CK-2) < 0.22 Troponin I < 0.012 Assessment & Plan - Diagnosis (1) Depression Is this a current diagnosis for this admission?: Yes (2) Intentional overdose of drug in tablet form Is this a current diagnosis for this admission?: Yes (3) Morbid obesity Is this a current diagnosis for this admission?: Yes (4) Symptomatic sinus bradycardia Is this a current diagnosis for this admission?: Yes - Time Time Spent with patient: 25-34 minutes - Plan Summary Plan Summary: She seems to be recovering from her atypical antipsychotic overdose and clonidine overdose. Hopefully she will be discharged to a psych facility in the morning if she continues to remain stable
[2017-08-29] MEDS: NORMAL SALINE 1000 ML 1,000 ML IV PRN (02:04)
[2017-08-29] MEDS: DOCUSATE SODIUM 100 MG CAPSULE PO SCH ×2 (10:48→17:07)
--- NOTE | 2017-08-29 11:38 | Progress Note ---
Provider Note Provider Note: The patient is medically cleared to be admitted to a Psychiatric facility.
--- NOTE | 2017-08-29 11:44 | PDOC DISCHARGE SUMMARY ---
General - Admit/Disc Date/PCP Admission Date/Primary Care Provider: 08/26/17 19:39 No PCP Discharge Date: 08/29/17 - Discharge Diagnosis (1) Depression Is this a current diagnosis for this admission?: Yes (2) Intentional overdose of drug in tablet form Is this a current diagnosis for this admission?: Yes (3) Morbid obesity Is this a current diagnosis for this admission?: Yes (4) Symptomatic sinus bradycardia Is this a current diagnosis for this admission?: Yes - Additional Information Resuscitation Status: Full Code Discharge Diet: As Tolerated Discharge Activity: Activity As Tolerated Home Medications: No Home Medications 08/26/17 History of Present Illness History of Present Illness: SUKHDEV COBB is a 32 year old female attempted suicide by taking her son' s psychiatric medications including 20 tablets of 2 mg Rexulti and suspected Clonidine tablets. She was given IV fluids and monitored on telemetry. She did have sinus bradycardia in the mid 30s which eventually improved as she woke up and became more active. QTC is 369. There is no QRS prolongation. She is medically stable for discharge to an inpatient psychiatric facility. Hospital Course Hospital Course: See above Physical Exam Vital Signs: Temp Pulse Resp BP Pulse Ox 97.4 F 54 L 14 132/91 H 97 08/29/17 08:11 08/29/17 08:45 08/29/17 08:45 08/29/17 08:11 08/29/17 08:45 Intake & Output 08/28/17 08/29/17 08/30/17 06:59 06:59 06:59 Intake Total 2605 4360 Output Total 505 1700 Balance 2100 2660 Weight 130 kg 128.8 kg Additional comments: Young female lying in bed not in acute distress Awake and alert oriented 3 no facial droop speech is clear and fluent, motor strength 5 out of 5 bilateral upper and lower extremities Abdomen: Soft, no focal tenderness, normal bowel sounds Skin: Warm and dry Cardiac: S1-S2 regular no murmurs heard refill edema no cyanosis Lungs: Clear to auscultation bilaterally next Results Laboratory Results: 08/27/17 04:00 08/28/17 04:12 08/26/17 08/26/17 08/27/17 21:55 21:55 04:00 Creatine Kinase 35 CK-MB (CK-2) < 0.22 < 0.22 Troponin I < 0.012 < 0.012 08/27/17 08/27/17 08/27/17 04:00 10:07 10:07 Creatine Kinase 30 27 L CK-MB (CK-2) < 0.22 Troponin I < 0.012 Status: Imported from PACS Plan Time Spent: Greater than 30 Minutes
--- NOTE | 2017-08-29 16:55 | PSYCHOLOGICAL NOTE ---
Psych Note - Psych Note Psych Note: Reason for Consult: intention overdose; IVC Consent permissions: patient unable to give at this time SUKHDEV COBB is a 32 year old female with a past medical history of morbid obesity, bipolar disorder not on medication. Patient presents lethargic via EMS after admitting a depression motivated overdose of 20 tablets of 2 mg Rexulti and atypical antipsychotic of her son's. conducted a chart review: Attending nurse noted at 1747 on 08/28/2017 While in room with family members at bedside discussing plan of care pt states "I did it for a very valid reason." Patient's sister states "and what was that? " to which patient responded, " Because I can't take it anymore. Everything." RN attempted to explain that, although it does not seem like it at the time, we are trying to act in the best interest of the patient so that she can handle the stresses of daily life while remaining safe. Patient is alert and orientated to person, place, time and circumstance. Mood is dysphoric with labile affect. Patient endorses suicidal ideation and overdosing on medication because she didn't "want to be hurt or sad or depressed anymore." She denies intentionally overdosing. Patient denies homicidal ideation. Delusions are absent and behaviors congruent with intact reality based presentation i.e. organized and linear thought processes. Eye contact is fair. Conversational speech is within normal rate tone and prosody until patient became upset. Patient then proceeded to start yelling. Attention and concentration are fair. Insight, judgment, impulse control is poor. Conducted checking with patient: Patient states she wants to go home and is questioning clinician on IVC protocol. Patient denies she intentionally took medication but confirms that she did it for "a good reason." Patient states that at "no time did I ever states the words...[id number]." She continued to disclose that she was just trying to get away in that moment; "it was just in that moment.... I am under a lot of stress." Patient continued to attempt to argue alluding to the fact that she may have intentionally took the medication as an attempt to get high. Clinician notes patient has no known history of substance abuse, patient's [place] substance abuse report does not identify any concerning possible substance abuse, patient has no known involvement with police. Patient continued to state "I have no history of attempting suicide." Patient became tearful and stated she would never do anything to put her daughter in harm (Clinician notes patient was home alone with her 9-year-old daughter at the time of her overdose). Clinician reminded patient that is exactly what happened and asked what the patient thought would happen when she took her son's medication. Patient again attempted to redirect the conversation to IVC policy again stating the clinician does not understand that she is under a lot of stress and doesn't know her so "why do you get to decide..because you have a plaque on the wall saying you have a degree...you are on a power trip." Clinician Patient spoke with patient's sister provided pamphlet for the IVC protocol. Explained to her the process now that the patient is medically clear, placement in psychiatric facility will begin. She stated that she is unsure if the patient was trying to kill herself that she might have been just trying to get high. She discloses that the patient has been off her bipolar medication for years. 296.40 (F31.9) bipolar 1 disorder unspecified per history provided by patient Impression\\plan: Patient is recommended to continue under IVC. Patient is demonstrating that she has no insight into her intentional overdose. She states that she did not intentionally overdose but states she didn't want to " be hurt or be sad or be depressed anymore." Patient was noted to verbally state she intentionally overdosed to [facility] staff upon arrive to ED. Behavior health team medication recommendations are Depakote 500 mg BID with Vistaril 50mg Q6 PRN. Once patient is medically cleared, placement in a inpatient psychiatric facility will be sought. Dr. Estevez was consulted and the care and management of this patient.
[2017-08-30] MEDS: DOCUSATE SODIUM 100 MG CAPSULE PO SCH (10:02)
[2017-08-30 12:42] VITALS: BP 113/58
--- NOTE | 2017-08-30 13:31 | PSYCHOLOGICAL NOTE ---
Psych Note - Psych Note Psych Note: Reason for Consult: Overdose Consent permissions: Lady-sister Pita Landrum and Rebeca Lloyd at [facility] Chart review: 08/28/17 17:47 - Nursing Note While in room with family members at bedside discussing plan of care pt states "I did it for a very valid reason." Patient's sister states "and what was that? " to which patient responded, " Because I can't take it anymore. Everything." 08/29/2017 - Attending Physician Patient medically cleared by physician. Consultation with floor nurse: Nurse noted no changes overnight. Nurse stated patient has had appropriate interactions today. Patient is a 32 year old female who presented to [facility] with a possible overdose of Rexulti and an unidentified anti-psychotic medication belonging to her son. Patient was lethargic at admission to the Emergency Department. Patient stated this has "all been a huge misunderstanding." She reported she was having "issues with herself and family" and wanted to "numb herself and get some sleep." Patient stated although she wasn't trying to kill herself she still sees what she did as a "stupid choice." She stated regret at her actions and how this has been a "learning experience." Patient reported she attends therapy at [facility] and has worked with Pita Landrum at [facility] for therapy involving her son and Rebeca for individual therapy. She stated she has missed a few therapy sessions due to work schedule but she usually has weekly therapy sessions. Patient gave consent to speak to workers at [facility] to obtain collateral information. Patient reported she is concerned about going inpatient because she doesn't want to lose her job because that will snowball into losing her apartment and custody of her children. Patient reported she is willing to follow recommendations provided by evaluators to include follow up with her established provider and medications. Collateral information was obtained with patient's sister, Lady. Patients sister was at bedside as support. Patients sister stated she had no concerns for the patients safety if she was discharged. Patient's sister stated she has removed all medications from the patient's house and they are in her car trunk. She denied observing any mood or behavior changes in the patient recently. Patient's sister reported patient was placed in an inpatient setting when she was 16 or 17 years old but it was due to drug use. 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 She reported using "Meth and any kind of pills" but chose to stop four years ago because she wanted to be able to care for her children and herself. Patient's sister stated the patient could stay with her as long as was needed to if and when she is discharged. Collateral information was obtained from the patient's mental health provider ( Jaylyn). Ms. Landrum reported she is very familiar with the family as they provided Intensive In Home to the family for two full cycles before the patient' s 12 year old son was placed in [facility]. The worker reported the patient was very involved, participated fully and comes to therapy consistently. She stated the patient "has too much to lose to commit suicide." The worker stated she could see the patient taking the pills "to feel numb" when she became overwhelmed. The mental health worker stated the patient is also involved in weekly therapy sessions at [facility] with her son and his mental health team. The provider agreed to schedule a therapy appointment from the hospital prior to discharge. The worker stated they are willing to go picker operator the patient to bring her to therapy if that is what she needs to follow through with the appointment. Patient's mental health provider (Rebeca Lloyd) contacted this interactive media project manager to confirm the patient made a therapy appointment for tomorrow ( 08.31.17) at 11am. Child Protective Services was contacted to identify any concerns they have with the patient's child being in her custody subsequent to discharge. This interactive media project manager met in person with CPS worker, Yancielizabeth Swift, in the patient's room. Ms. Swift reported DSS and the patient had agreed on a plan for the patient to stay with her sister so that she and her child were monitored by the patient's sister and they would follow up with the patient and her sister over the next few weeks. The CPS worker agreed that the patient's child could be in her custody and they had no problem with the patient being discharged. Patient was alert and oriented to person, place, time and circumstance. Mood was euthymic with congruent affect. Patient denied suicidal/homicidal ideation, intent or plan. Patient stated she wasnt thinking of killing herself when she took the medications. She did not appear to be responding to internal stimuli as evidenced by appropriate eye contact, maintaining conversation and staying on topic. No delusions or psychosis noted. Thought processes were organized and linear. Conversational speech was within normal limits for rate, tone and prosody. Intellectual abilities were estimated in the average range. Insight, judgment and impulse control were fair. 1. 296.40 (F31.9) Bipolar 1 Disorder, Unspecified, per history provided by patient 2. 309.81 (F43.10) Post Traumatic Stress Disorder, per history provided by patient Impression/Plan: Recommend rescind IVC. Patient is psychiatrically clear. She no longer meets [place] G.S 122C IVC criteria. Patient denied suicidal/homicidal ideation, intent or plan. Patient is not considered a danger to herself or others. No delusions or psychosis were observed. Patient has a support system in place, with her sister who she will be staying with subsequent to discharge. Patient was given resources for mobile crisis. Provided education regarding utilizing appropriate coping skills in times of stress and following up with established providers. Patient was recommended to follow up with medication recommendations (Depakote 500mg BID and Vistaril 50mg q6 prn) to further manage her mental health. Consulted with Dr. Estevez regarding the care and management of this patient.
--- NOTE | 2017-08-30 15:52 | PDOC PROGRESS REPORT ---
Subjective Progress Note for:: 08/30/17 Subjective:: 32 yr old female who took her son's psych meds in a suicide attempt. One was an atypical antipsychotic, she may also have taken multiple tablets of clonidine per friend. She is medically cleared for discharge to a psychiatric facility. Reason For Visit: ANTI PSYCHOTIC OVERDOSE BRADYCARDIA, Physical Exam Vital Signs: Temp Pulse Resp BP Pulse Ox 97.4 F 73 18 113/58 L 96 08/30/17 12:08 08/30/17 12:08 08/30/17 12:08 08/30/17 12:08 08/30/17 12:08 Intake & Output 08/29/17 08/30/17 08/31/17 06:59 06:59 06:59 Intake Total 4360 1500 200 Output Total 1700 1500 Balance 2660 0 200 Weight 128.8 kg 129.5 kg Additional comments: Young female sitting in her chair Awake and alert Cardiac: S1-S2 regular no murmurs heard refill edema no cyanosis Lungs: Clear to auscultation bilaterally next Abdomen: Soft, no focal tenderness, normal bowel sounds Skin: Warm and dry Results Laboratory Results: 08/27/17 04:00 08/28/17 04:12 08/26/17 08/26/17 08/27/17 21:55 21:55 04:00 Creatine Kinase 35 CK-MB (CK-2) < 0.22 < 0.22 Troponin I < 0.012 < 0.012 08/27/17 08/27/17 08/27/17 04:00 10:07 10:07 Creatine Kinase 30 27 L CK-MB (CK-2) < 0.22 Troponin I < 0.012 Assessment & Plan - Diagnosis (1) Depression Is this a current diagnosis for this admission?: Yes Plan: Management per psychiatry service. They have recommended Depakote and Vistaril as needed (2) Intentional overdose of drug in tablet form Is this a current diagnosis for this admission?: Yes Plan: Medically cleared for inpatient psychiatry treatment (3) Morbid obesity Is this a current diagnosis for this admission?: Yes (4) Symptomatic sinus bradycardia Is this a current diagnosis for this admission?: Yes Plan: Improved. - Time Time Spent with patient: 25-34 minutes - Plan Summary Plan Summary: Medically cleared for inpatient psychiatry treatment
[2017-08-30] MEDS ORDERED: DIVALPROEX SODIUM 500 MG TAB.SR.24H PO ONE (16:00)
[2017-08-31] MEDS ORDERED: DIVALPROEX SODIUM 500 MG TAB.SR.24H PO SCH (11:00)
== END 2017-08-30 16:45 | disposition home or self-care (01) | DRG 918 ==
LOC: ER 16:36 → EH 19:39 → 3N 08-27 15:20
PROVIDERS: ADMIT Internal Medicine; ATTEND Internal Medicine
PROC: 3E0F73Z Introduction of Anti-inflammatory into Respiratory Tract, Via Natural or Artificial Opening (ICD-10-PCS; principal; 2017-08-27)
DX: T43.592A Poisoning by other antipsychotics and neuroleptics, intentional self-harm, initial encounter (principal); Z68.42 Body mass index [BMI] 45.0-49.9, adult; T46.5X2A Poisoning by other antihypertensive drugs, intentional self-harm, initial encounter; F31.9 Bipolar disorder, unspecified; R00.1 Bradycardia, unspecified; E66.01 Morbid (severe) obesity due to excess calories; F12.90 Cannabis use, unspecified, uncomplicated; E87.6 Hypokalemia; F17.200 Nicotine dependence, unspecified, uncomplicated; Z82.49 Family history of ischemic heart disease and other diseases of the circulatory system; Z90.49 Acquired absence of other specified parts of digestive tract
CPT/HCPCS: 36415; 80048; 80053; 80076; 80307; 81001; 82550; 82553; 82803; 83735; 84100; 84443; 84484; 84702; 85025; 93005; 93010; 96361; 96374; 99291; 99292; J1644; J2310; J7030; J7620

== ENCOUNTER 2018-06-21 00:42 | Outpatient (CLI) | payer MEDICAID ==
[2018-06-21 01:11] LABS: APPEARANCE,URINE CLEAR; BILIRUBIN,URINE NEGATIVE (NEGATIVE); COLOR,URINE STRAW; GLUCOSE, URINE NEGATIVE (NEGATIVE); KETONES,URINE NEGATIVE (NEGATIVE); LEUKOCYTE ESTERASE,URINE NEGATIVE (NEGATIVE); NITRITE,URINE NEGATIVE (NEGATIVE); PROTEIN,URINE NEGATIVE (NEGATIVE); URINE SPECIFIC GRAVITY 1.005; UROBILINOGEN,URINE NEGATIVE mg/dL (<2.0)
[2018-06-21 01:28] LABS: URINE AMPHETAMINES SCREEN NEGATIVE; URINE BARBITURATES SCREEN NEGATIVE; URINE BENZODIAZEPINES SCREEN NEGATIVE; URINE COCAINE SCREEN NEGATIVE; URINE METHADONE SCREEN NEGATIVE; URINE PHENCYCLIDINE SCREEN NEGATIVE
[2018-06-21 01:36] LABS: URINE MARIJUANA (THC) SCREEN UNCONFIRMED POSITIVE
[2018-06-21] MEDS ORDERED: ACETAMINOPHEN 325 MG TABLET ONE (01:56)
[2018-06-21] MEDS ORDERED: ACETAMINOPHEN 325 MG TABLET PO ONE (01:57)
== END 2018-06-21 02:03 | disposition home or self-care (01) ==
LOC: LC 00:42
PROVIDERS: ATTEND Obstetrics & Gynecology
PROC: 4A1HXCZ Monitoring of Products of Conception, Cardiac Rate, External Approach (ICD-10-PCS; principal; 2018-06-21)
DX: O47.03 False labor before 37 completed weeks of gestation, third trimester (principal); O26.893 Other specified pregnancy related conditions, third trimester; M54.9 Dorsalgia, unspecified; R11.0 Nausea; R10.30 Lower abdominal pain, unspecified; Z3A.31 31 weeks gestation of pregnancy
CPT/HCPCS: 59025; 81001; 80307; J3490

== ENCOUNTER 2018-08-10 06:12 | Inpatient (IN) | payer MEDICAID ==
[2018-08-08 10:20] LABS: ABSOLUTE BASOPHILS # (AUTO) 0.1 10^3/uL (0.0-0.2); ABSOLUTE EOSINOPHILS # (AUTO) 0.4 10^3/uL (0.0-0.6); ABSOLUTE LYMPHOCYTES (AUTO) 2.5 10^3/uL (0.5-4.7); ABSOLUTE MONOCYTES (AUTO) 0.9 10^3/uL (0.1-1.4); ABSOLUTE NEUT (AUTO) 7.1 10^3/uL (1.7-8.2); BASOPHILS % (AUTO) 0.8 % (0-2); EOSINOPHILS % (AUTO) 3.6 % (0-6); HEMATOCRIT 33.8 % (36.0-47.0); HEMOGLOBIN 12.1 g/dL (12.0-15.5); LYMPHOCYTES % (AUTO) 22.8 % (13-45); MEAN CORPUSCULAR HEMOGLOBIN 31.8 pg (27.0-33.4); MEAN CORPUSCULAR HGB CONC 35.8 g/dL (32.0-36.0); MEAN CORPUSCULAR VOLUME 89 fl (80-97); MONOCYTES % (AUTO) 7.8 % (3-13); PLATELET COUNT 227 10^3/uL (150-450); RED CELL DISTRIBUTION WIDTH 12.8 % (11.5-14.0); TOTAL CELLS COUNTED % (AUTO) 100 %; WHITE BLOOD COUNT 10.9 10^3/uL (4.0-10.5)
[2018-08-08 10:21] LABS: APPEARANCE,URINE SLIGHTLY-CLOUDY; BILIRUBIN,URINE NEGATIVE (NEGATIVE); COLOR,URINE YELLOW; GLUCOSE, URINE NEGATIVE (NEGATIVE); KETONES,URINE NEGATIVE (NEGATIVE); LEUKOCYTE ESTERASE,URINE NEGATIVE (NEGATIVE); NITRITE,URINE NEGATIVE (NEGATIVE); PROTEIN,URINE NEGATIVE (NEGATIVE); URINE SPECIFIC GRAVITY 1.023; UROBILINOGEN,URINE NEGATIVE mg/dL (<2.0)
[2018-08-08 10:54] LABS: URINE AMPHETAMINES SCREEN NEGATIVE; URINE BARBITURATES SCREEN NEGATIVE; URINE BENZODIAZEPINES SCREEN NEGATIVE; URINE COCAINE SCREEN NEGATIVE; URINE METHADONE SCREEN NEGATIVE; URINE PHENCYCLIDINE SCREEN NEGATIVE
[2018-08-08 11:16] LABS: URINE MARIJUANA (THC) SCREEN UNCONFIRMED POSITIVE
[2018-08-10] MEDS ORDERED: CEFAZOLIN 1 GM/D5W RTU 1 GM/50 ML RTUPB IV ONE (06:25)
[2018-08-10] MEDS ORDERED: OXYTOCIN 10 UNIT/ML VIAL ONE (06:59)
[2018-08-10] MEDS ORDERED: BUPIVACAINE HCL/DEX-WATER/PF 15 MG/2 ML AMPULE ONE (06:59)
[2018-08-10] MEDS ORDERED: FENTANYL CITRATE INJ/PF 100 MCG/2 ML AMPUL ONE (06:59)
[2018-08-10] MEDS ORDERED: OXYTOCIN/NORMAL SALINE 20 UNIT/1,000 ML RTUINJ ONE (06:59)
[2018-08-10] MEDS ORDERED: MIDAZOLAM 2 MG/2 ML INJ ONE (06:59)
[2018-08-10] MEDS ORDERED: ONDANSETRON HCL INJ/PF 4 MG/2 ML SDV ONE (07:00)
[2018-08-10] MEDS ORDERED: MORPHINE SULFATE 10 MG/ML INJ IV PRN ×2 (07:27→19:57)
[2018-08-10] MEDS ORDERED: FENTANYL CITRATE INJ/PF 100 MCG/2 ML AMPUL IV PRN ×3 (07:27)
[2018-08-10] MEDS ORDERED: MEPERIDINE HCL/PF INJ 25 MG/1 ML DISP.SYRIN IV PRN (07:27)
[2018-08-10] MEDS ORDERED: ONDANSETRON HCL INJ/PF 4 MG/2 ML SDV IV PRN (07:27)
[2018-08-10] MEDS ORDERED: PROMETHAZINE HCL INJ 25 MG/1 ML VIAL IV PRN ×2 (07:27→08:25)
[2018-08-10] MEDS ORDERED: DIPHENHYDRAMINE HCL 50 MG/ML VIAL IV PRN (07:27)
[2018-08-10] MEDS ORDERED: NALBUPHINE HCL INJ 10 MG/1 ML AMPULE IM ONE ×2 (08:05→09:03)
[2018-08-10] MEDS ORDERED: ACETAMINOPHEN 325 MG TABLET PO PRN (08:25)
[2018-08-10] MEDS ORDERED: SIMETHICONE 80 MG TAB.CHEW PO PRN (08:25)
[2018-08-10] MEDS ORDERED: OXYCODONE-ACETAMINOPHEN 5-325 MG TABLET PO PRN (08:25)
[2018-08-10] MEDS ORDERED: OXYTOCIN/NORMAL SALINE 20 UNIT/1,000 ML RTUINJ IV PRN (08:25)
[2018-08-10] MEDS ORDERED: DIPH/PERTUSS(ACELL)/TETANUS VAC/PF 0.5 ML SYR (>=10YO) IM PRN (08:25)
[2018-08-10] MEDS ORDERED: ACETAMINOPHEN 1,000 MG/100 ML RTUPB IV PRN (08:25)
[2018-08-10] MEDS ORDERED: MEASLES,MUMPS&RUBELLA VACC/PF 0.5 ML VIAL SUBCUT PRN (08:25)
--- NOTE | 2018-08-10 08:29 | PDOC DELIVERY SUMMARY ---
Delivery Summary - Maternal Hx : IV Hx # Term Pregnancies: 2 Hx Total # of Abortions (Sponateous & Elective): 1 KAMRAN: 08/17/18 Gestational Age: 39 Ruptured Membranes: AROM Time of Rupture: 08:04 Fluids: Clear - Delivery Labor: Not In Labor Presentation: Vertex Heart Rate Monitoring: Done Pre-Operatively Support Person Present: Yes Location: LD : Scheduled Placenta: Within Normal Limits Number of Vessels (Cord): 3 Nuchal Cord: No Delivery of Placenta Date: 08/10/18 Delivery of Placenta Time: 08:05 - Medications Type of Anesthesia:: Spinal - Assess and Care Baby 1 Male Delivery of Infant Date: 08/10/18 Delivery of Infant Time: 08:04 Preprinted Number On Band: [id number] Skin to Skin: No Mode of Transport: Bassinet - Delivery Personnel Folding Machine Setter: CHRISTIAN PEREYRA RN: NICOLE CUADRA RN: SLIME SAMPSON MD: SONIA SENIOR MD
--- NOTE | 2018-08-10 08:47 | OPERATIVE REPORT E ---
Operative Report NAME: SUKHDEV COBB : 1985 AGE: 33Y DATE OF SURGERY: ROOM: 216 PREOPERATIVE DIAGNOSIS: INTRAUTERINE AT TERM WITH DESIRE FOR STERILIZATION AND PRIOR CESARIAN SECTION. POSTOPERATIVE DIAGNOSIS: INTRAUTERINE AT TERM WITH DESIRE FOR STERILIZATION AND PRIOR CESARIAN SECTION. PROCEDURES: Repeat low transverse , delivery of viable male; Apgars of 7 and 7; weight pending. ANESTHESIA: Spinal. SURGEON: Lauren SENIOR M.D. TISSUE REMOVED: Placenta. DESCRIPTION OF PROCEDURE: The patient was placed in a supine position with a roll on her right side. The Pfannenstiel incision was made through an existing Pfannenstiel eschar. The excision extended through the subcutaneous tissue and fascia with sharp dissection. The fascia was sharply divided. Rectus muscle was bluntly and sharply divided. Parietal peritoneum was entered with sharp dissection. The uterus was then nicked in the midline and extended bilaterally, infant then delivered through the uterine abdominal incision. Cord was clamped. was passed from the table. The placenta was manually extracted. The uterus closed in 2 layers using 0 Vicryl first running stitch and a second Lembert stitch to imbricate the first layer. A small amount of bleeding noted in the mid portion and controlled with [id number] suture of 0 Vicryl. The right fallopian tube was then banded in the proximal portion with good purchase of tissue being noted. Procedure repeated on the left. Again, a good amount of tissue being noted and both tubes identified through the fimbria prior to and after banding. The fascia then closed using 0 Vicryl. Skin was closed with subcu absorbable yvonne. The patient's urine remained clear throughout the procedure. She was taken to recovery in good condition, nursery in good condition. DICTATING PHYSICIAN: Lauren SENIOR M.D. [id number] PHY#: [id number] ID: [id number] JOB#: [id number] ACCT: [id number] cc:Lauren SENIOR M.D. >
[2018-08-10] MEDS ORDERED: NALBUPHINE HCL INJ 10 MG/1 ML AMPULE ONE (09:22)
[2018-08-10] MEDS ORDERED: ACETAMINOPHEN 1,000 MG/100 ML RTUPB IV ONE (09:22)
[2018-08-10] MEDS ORDERED: KETOROLAC TROMETHAMINE INJ/PF 30 MG/1 ML SDV ONE (09:23)
[2018-08-10] MEDS ORDERED: MORPHINE SULFATE 10 MG/ML INJ ONE (10:03)
[2018-08-10] MEDS: MORPHINE SULFATE 10 MG/ML INJ IM PRN ×2 (10:05→16:42)
[2018-08-10] MEDS: DOCUSATE SODIUM 100 MG CAPSULE PO SCH ×2 (11:33→18:12)
[2018-08-10] MEDS: PRENATAL VITAMIN W DHA CAPSULE PO SCH (11:33)
[2018-08-10] MEDS: KETOROLAC TROMETHAMINE INJ/PF 30 MG/1 ML SDV IV SCH ×2 (11:34→18:13)
[2018-08-10] MEDS: OXYCODONE-ACETAMINOPHEN 5-325 MG TABLET PO PRN ×2 (12:21→21:17)
[2018-08-10] MEDS ORDERED: RINGERS SOLUTION,LACTATED 1,000 ML IV PRN (12:34)
[2018-08-11] MEDS: KETOROLAC TROMETHAMINE INJ/PF 30 MG/1 ML SDV IV SCH (03:12)
[2018-08-11 06:42] LABS: HEMATOCRIT 29.3 % (36.0-47.0); HEMOGLOBIN 10.3 g/dL (12.0-15.5); MEAN CORPUSCULAR HEMOGLOBIN 31.9 pg (27.0-33.4); MEAN CORPUSCULAR HGB CONC 35.3 g/dL (32.0-36.0); MEAN CORPUSCULAR VOLUME 90 fl (80-97); PLATELET COUNT 186 10^3/uL (150-450); RED BLOOD COUNT 3.25 10^6/uL (3.72-5.28)
[2018-08-11] MEDS: OXYCODONE-ACETAMINOPHEN 5-325 MG TABLET PO PRN ×3 (06:44→23:24)
--- NOTE | 2018-08-11 09:57 | PDOC PROGRESS REPORT ---
Subjective-OB Progress Note for:: 08/11/18 Physical Exam (OB) Vital Signs: Temp Pulse Resp BP Pulse Ox 97.8 F 54 L 17 100/59 L 98 08/11/18 07:45 08/11/18 07:45 08/11/18 07:45 08/11/18 07:45 08/11/18 07:45 Intake & Output 08/10/18 08/11/18 08/12/18 06:59 06:59 06:59 Intake Total 1636 Output Total 1350 Balance 286 Weight 118.841 kg - PIH/Pre-Eclampsia Headache: Absent Epigastric Pain: No Visual Changes: No - Dressing Removed: No Incision: Dressing - Lochia Lochia Amount: Small 10-25 ml Lochia Color: Rubra/Red - Abdomen Description: Tender, Soft Hernia Present: No Bowel Sounds: Normoactive Flatus Presence: Absent Stool: No Fundal Description: Firm, Midline Fundal Height: u/u - u/2 Objective-Diagnostic Laboratory: 08/11/18 06:11 08/11/18 06:11 WBC 10.0 RBC 3.25 L Hgb 10.3 L Hct 29.3 L MCV 90 MCH 31.9 MCHC 35.3 RDW 13.0 Plt Count 186
[2018-08-11] MEDS: DOCUSATE SODIUM 100 MG CAPSULE PO SCH ×2 (10:14→17:19)
[2018-08-11] MEDS: PRENATAL VITAMIN W DHA CAPSULE PO SCH (10:14)
[2018-08-11] MEDS: IBUPROFEN 800 MG TABLET PO SCH ×3 (12:06→23:24)
[2018-08-12] MEDS: IBUPROFEN 800 MG TABLET PO SCH ×2 (07:16→13:19)
[2018-08-12] MEDS: OXYCODONE-ACETAMINOPHEN 5-325 MG TABLET PO PRN (08:31)
--- NOTE | 2018-08-12 09:34 | PDOC PROGRESS REPORT ---
Subjective-OB Progress Note for:: 08/12/18 Subjective: Doing well, ready to go home, bottle feeding, voiding, passing gas, tolerating diet Physical Exam (OB) Vital Signs: Temp Pulse Resp BP Pulse Ox 98.1 F 71 18 125/55 L 98 08/12/18 07:48 08/12/18 07:48 08/12/18 07:48 08/12/18 07:48 08/12/18 07:48 Intake & Output 08/11/18 08/12/18 08/13/18 06:59 06:59 06:59 Intake Total 2086 1254 Output Total 1350 Balance 736 1254 - PIH/Pre-Eclampsia Clonus: Negative Headache: Absent Epigastric Pain: No Visual Changes: No - Dressing Removed: Yes - franky today Incision: Well Approximated Closure Type: Surgical Glue - Lochia Lochia Amount: Scant < 10 ml Lochia Color: Rubra/Red - Abdomen Description: Tender, Soft Hernia Present: No Fundal Description: Firm, Midline Fundal Height: u/u - u/2 Objective-Diagnostic Laboratory: 08/11/18 06:11 Assessment and Plan(PN) - Assessment and Plan (1) Positive GBS test Is this a current diagnosis for this admission?: Yes (2) Drug abuse during Is this a current diagnosis for this admission?: Yes (3) Depression with anxiety Is this a current diagnosis for this admission?: Yes (4) Delivery by elective caesarean section Is this a current diagnosis for this admission?: Yes (5) Morbid obesity Is this a current diagnosis for this admission?: Yes - Time Spent with Patient Time with patient: Less than 15 minutes Smoking Education Provided: Over 3 minutes Medications reviewed and adjusted accordingly: Yes - Disposition Anticipated Discharge: Home Within: within 24 hours
--- NOTE | 2018-08-12 09:38 | PDOC DISCHARGE SUMMARY ---
Final Diagnosis Discharge Date: 08/12/18 - Final Diagnosis (1) Positive GBS test Is this a current diagnosis for this admission?: Yes (2) Drug abuse during Is this a current diagnosis for this admission?: Yes (3) Depression with anxiety Is this a current diagnosis for this admission?: Yes (4) Delivery by elective caesarean section Is this a current diagnosis for this admission?: Yes (5) Morbid obesity Is this a current diagnosis for this admission?: Yes Discharge Data - Discharge Medication Prescriptions: Oxycodone HCl/Acetaminophen [Percocet 5-325 mg Tablet] 1 tab PO Q4HP PRN #20 tablet PRN Reason: Home Medications: Oxycodone HCl/Acetaminophen [Percocet 5-325 mg Tablet] 1 tab PO Q4HP PRN #20 tablet 08/12/18 Vit/Dha [ Multi + Dha Capsule] 1 cap PO DAILY capsule 08/12/18 Gestational Age: 39 Reason(s) for Admission: Ceasarean Section-Repeat, Group B Strep Positive Procedures: NST, Ultrasound Intrapartum Procedure(s): : Low Cervical, Transverse - Diagnosis Test Laboratory: Temp Pulse Resp BP Pulse Ox 98.1 F 71 18 125/55 L 98 08/12/18 07:48 08/12/18 07:48 08/12/18 07:48 08/12/18 07:48 08/12/18 07:48 08/08/18 08/08/18 08/11/18 09:35 09:45 06:11 RBC 3.80 3.25 L Hgb 12.1 10.3 L Hct 33.8 L 29.3 L Urine Opiates Screen NEGATIVE - Discharge information/Instructions Discharge Activity: Activity As Tolerated, No Lifting Over 10 Pounds, No Lifting/Push/Pulling, Pelvic Rest, Slowly Increase Activity Discharge Diet: As Tolerated, Regular Disposition: HOME, SELF-CARE Follow up with: [facility] in: 5, Days
[2018-08-12] MEDS: DOCUSATE SODIUM 100 MG CAPSULE PO SCH (09:43)
[2018-08-12] MEDS: PRENATAL VITAMIN W DHA CAPSULE PO SCH (09:43)
[2018-08-12 13:13] VITALS: BP 121/68
== END 2018-08-12 15:34 | disposition home or self-care (01) | DRG 784 ==
LOC: 2S 06:12
PROVIDERS: ADMIT Obstetrics & Gynecology Gynecology; ATTEND Obstetrics & Gynecology Gynecology
PROC: 0UL70ZZ Occlusion of Bilateral Fallopian Tubes, Open Approach (ICD-10-PCS; 2018-08-10)
PROC: 4A1HXCZ Monitoring of Products of Conception, Cardiac Rate, External Approach (ICD-10-PCS; 2018-08-10)
PROC: 10D00Z1 Extraction of Products of Conception, Low, Open Approach (ICD-10-PCS; principal; 2018-08-10 07:45)
PROC: 3E0234Z Introduction of Serum, Toxoid and Vaccine into Muscle, Percutaneous Approach (ICD-10-PCS; 2018-08-12)
DX: O34.211 Maternal care for low transverse scar from previous cesarean delivery (principal); Z30.2 Encounter for sterilization; O99.323 Drug use complicating pregnancy, third trimester; F19.10 Other psychoactive substance abuse, uncomplicated; O99.344 Other mental disorders complicating childbirth; F41.8 Other specified anxiety disorders; O99.214 Obesity complicating childbirth; E66.01 Morbid (severe) obesity due to excess calories; Z23 Encounter for immunization; Z3A.39 39 weeks gestation of pregnancy; Z37.0 Single live birth
CPT/HCPCS: 1961; 36415; 80307; 80349; 81001; 85025; 85027; 86850; 86900; 86901; 90715; 94799; G0480; J0131; J1885; J2250; J2270; J2300; J2405; J2590; J3010; J3490; J7120

== ENCOUNTER 2020-01-14 10:00 | Emergency (ER) | payer MEDICAID ==
--- NOTE | 2020-01-14 10:30 | ER Document Report ---
HPI - HPI Patient complains to provider of: Ankle pain Time Seen by Provider: 01/14/20 10:26 Onset: Just prior to arrival Pain Level: 3 Context: This 34-year-old female states she stepped in a hole and twisted her right ankle medially. Associated Symptoms: None Exacerbated by: Denies Relieved by: Denies - REPRODUCTIVE Reproductive: DENIES: : - MUSCULOSKELETAL Musculoskeletal: REPORTS: Extremity pain Past Medical History - General Information source: Patient - Social History Smoking Status: Current Every Day Smoker Cigarette use (# per day): Yes - 20 Chew tobacco use (# tins/day): No Smoking Education Provided: No Family History: Hypertension Patient has homicidal ideation: No - Past Medical History Cardiac Medical History: Denies: Hx Hypertension, Hx Pulmonary Embolism, Hx Heart Murmur Pulmonary Medical History: Denies: Hx Asthma, Hx Sleep Apnea, Hx Tuberculosis Neurological Medical History: Denies: Hx Cerebrovascular Accident, Hx Seizures Endocrine Medical History: Denies: Hx Hyperthyroidism, Hx Hypothyroidism Renal/ Medical History: Denies: Hx Kidney Stones, Hx Ovarian Cysts, Hx Peritoneal Dialysis, Hx Pelvic Inflammatory Disease Malignancy Medical History: Denies: Hx Breast Cancer, Hx Cervical Cancer, Hx Ovarian Cancer GI Medical History: Denies: Hx Gastroesophageal Reflux Disease, Hx Hiatal Hernia, Hx Ulcer Musculoskeletal Medical History: Denies Hx Fibromyalgia Psychiatric Medical History: Reports: Hx Depression - HX ANOREIXA Denies: Hx Bipolar Disorder, Hx Post Traumatic Stress Disorder, Hx Schizophrenia Traumatic Medical History: Denies: Hx Fractures Infectious Medical History: Denies: Hx HIV Past Surgical History: Reports: Hx Section, Hx Cholecystectomy, Hx Gyne cologic Surgery - - Immunizations Hx Diphtheria, Pertussis, Tetanus Vaccination: Yes Vertical Provider Document - CONSTITUTIONAL Agree With Documented VS: Yes - INFECTION CONTROL TRAVEL OUTSIDE OF THE [place] IN LAST 30 DAYS: No - HEENT HEENT: Atraumatic, Conjuctival Injection, Normocephalic, PERRLA - NECK Neck: Normal Inspection, Supple - RESPIRATORY Respiratory: Breath Sounds Normal, No Respiratory Distress - CARDIOVASCULAR Cardiovascular: Regular Rate, Regular Rhythm Course - Re-evaluation Re-evalutation: 01/14/20 11:06 Good distal pulses - Vital Signs Vital signs: Temp Pulse Resp BP Pulse Ox 98.1 F 92 18 122/89 H 100 01/14/20 10:20 01/14/20 10:01/14/20 10:05 01/14/20 10:05 01/14/20 10:05 Discharge - Discharge Clinical Impression: Right ankle strain Qualifiers: Encounter type: initial encounter Qualified Code(s): S96.911A - Strain of unspecified muscle and tendon at ankle and foot level, right foot, initial encounter Disposition: HOME, SELF-CARE Instructions: Use of Crutches ([facility]), Ankle Stirrup Splint ([facility]), Ice & Elevation ([facility]), Soft Ankle Splint ([facility]), Sprained Ankle ([facility]) Prescriptions: Ibuprofen [Motrin 600 Mg Tablet] 600 mg PO TID #15 tablet
--- NOTE | 2020-01-14 10:48 | RADIOLOGY REPORT (SQ) ---
EXAM DESCRIPTION: ANKLE RIGHT COMPLETE IMAGES COMPLETED DATE/TIME: 01/14/2020 10:32 am REASON FOR STUDY: pain COMPARISON: None. NUMBER OF VIEWS: Three views. TECHNIQUE: AP, lateral, and oblique radiographic images acquired of the right ankle. LIMITATIONS: None. FINDINGS: MINERALIZATION: Normal. BONES: No acute fracture or dislocation. No worrisome bone lesions. JOINTS: No effusions. SOFT TISSUES: Diffuse swelling. No foreign body. OTHER: No other significant finding. IMPRESSION: Soft tissue injury. TECHNICAL DOCUMENTATION: JOB ID: [id number] 2010 [employer]- All Rights Reserved Reading location - IP/workstation name: [email or web address]
[2020-01-14 11:24] VITALS: BP 119/74
== END 2020-01-14 11:17 | disposition home or self-care (01) ==
LOC: ER 10:00
DX: S96.911A Strain of unspecified muscle and tendon at ankle and foot level, right foot, initial encounter (principal); X50.0XXA Overexertion from strenuous movement or load, initial encounter; F17.210 Nicotine dependence, cigarettes, uncomplicated; Z90.49 Acquired absence of other specified parts of digestive tract
CPT/HCPCS: 99283